=== PATIENT | female | born 1985 | race Caucasian/White ===

== ENCOUNTER 2017-07-10 17:57 | Emergency (ER) | END 2017-07-10 20:41 | disposition home or self-care (01) ==

== ENCOUNTER 2018-01-11 13:02 | Outpatient (CLI) | END 2018-01-11 15:10 | disposition home or self-care (01) ==

== ENCOUNTER 2018-01-12 21:40 | Inpatient (IN) | END 2018-01-15 18:02 | disposition home or self-care (01) | DRG 806 ==